=== PATIENT | male | born 1955 | race African-American/Black ===

== ENCOUNTER 2016-12-19 07:34 | Day surgery (SDC) | payer MEDICARE ==
[~2016-12-19 07:34] MED LIST: ADULT ASPIRIN81 MG PO; ADULT LOW DOSE81 M1 PO; ADULT LOW DOSE81 MG PO; BAYER CHILDREN'81 MG PO; CATAPRES-T0.2 MG/24 TD; CELEBREX100 MG PO; COLACE100 M1 PO; COLACE100 MG PO; FLEXERIL5 MG PO; GLUCOPHAGE1000 M1 PO; H PO; HYDROCHLOROTH12.5 M3 PO; HYDROCHLOROTHIA25 MG PO; LOPRESSOR25 MG/TA7 PO; MIRALAX17 G1 PO; NORCO 5-325 TA1 EACH PO; NORCO 5/325 TAB1 TAB PO; NORCO 5/3251 TA1 PO; NORCO 5/3251 TA2 PO; STOOL SOFTENER50 M1 PO; TYLENOL325 M2 PO; TYLENOL325 MG PO; VITAMIN D-32000 UNI4 PO; [UNRECOGNIZED DRUG - REMARK]
[2016-12-20 08:45] LABS: BASO % 0.2 % (0-2); EOS % 2.9 % (0-7); EOSINOPHIL ABSOLUTE COUNT 0.2 tho/cmm (0.0-0.7); HCT-HEMATOCRIT 36.7 % (36.0-53.5); HGB-HEMOGLOBIN 12.8 gm/dl (13.5-17.0); IMMATURE GRANULOCYTES ABSOLUTE 0.01 tho/cmm (0-0.03); IMMATURE GRANULOCYTES PERCENT 0.2 % (0-0.3); LYMPH % 21.7 % (20-45); LYMPH ABSOLUTE COUNT 1.3 tho/cmm (0.8-4.5); MCH (MEAN CORPUSCULAR HGB) 29.9 pg (28.0-32.0); MCHC MEAN CORPUSCULAR HGB CONC 34.9 % (32.0-36.0); MCV (MEAN CELL VOLUME) 85.7 fl (82.0-96.0); MEAN PLATELET VOLUME 10.4 cmc (9.4-12.4); MONO % 8.3 % (0-12); MONOCYTE ABSOLUTE COUNT 0.5 tho/cmm (0.0-1.2); NEUTROPHIL ABSOLUTE COUNT 4.1 tho/cmm (1.6-8.0); NEUTROPHIL-AUTOMATED 4.1 tho/cmm (1.6-8.0); NEUTROPHILS % 66.7 % (40-80); PLATELET COUNT 126 tho/cmm (150-450); RED BLOOD COUNT 4.28 mil/cmm (4.40-5.70); RED CELL DISTRIBUTION WIDTH 13.6 % (12.4-16.4); WHITE BLOOD COUNT 6.1 tho/cmm (4.0-10.0)
[2016-12-20 08:57] LABS: ANION GAP 11 mmol/L (0-20); BLOOD UREA NITROGEN 11 mg/dl (6-24); CALCIUM 7.7 mg/dl (8.5-10.5); CARBON DIOXIDE-VENOUS 28 mmol/L (22-32); CHLORIDE 102 mmol/l (96-110); CREATININE 1.05 mg/dl (0.60-1.30); GLUCOSE 185 mg/dL (70-110); POTASSIUM 3.1 mmol/L (3.7-5.1); SODIUM 138 mmol/L (135-145); eGFR VALUE FOR BLACK 89 mL/Min
[2016-12-21 05:17] LABS: HGB-HEMOGLOBIN 12.1 gm/dl (13.5-17.0); PLATELET COUNT 113 tho/cmm (150-450)
--- NOTE | 2016-12-21 18:56 | NUR ---
VIRTUAL CARE NOTE; ASSESSMENT DEFFERED. PT. SLEEPING.
[2016-12-22] MEDS ORDERED: NORCO 5-325 TA1 EACH PO (11:21)
[2016-12-23 05:25] LABS: HGB-HEMOGLOBIN 12.8 gm/dl (13.5-17.0); PLATELET COUNT 153 tho/cmm (150-450)
== END 2016-12-23 16:20 ==
LOC: SRG 07:34 → SHSB 07:39 → ORW 09:25 → PACU 12:17 → 5WD 13:35
PROVIDERS: Family Medicine; Surgery
PROC: 0WUF0JZ Supplement Abdominal Wall with Synthetic Substitute, Open Approach (ICD-10-PCS; principal; 2016-12-19)
DX: K43.2 Incisional hernia without obstruction or gangrene (principal); I10 Essential (primary) hypertension; M19.90 Unspecified osteoarthritis, unspecified site; E11.9 Type 2 diabetes mellitus without complications; Z90.49 Acquired absence of other specified parts of digestive tract; Z90.5 Acquired absence of kidney; Z79.899 Other long term (current) drug therapy; Z98.890 Other specified postprocedural states
CPT/HCPCS: J0690; J1170; J1200; J1650; J2250; J2405; J2795; J3010; J7030